=== PATIENT | male | born 1995 | race Caucasian/White ===

== ENCOUNTER 2017-05-03 14:08 | Emergency (ER) | payer OTHER ==
[~2017-05-03] VITALS: Ht 188 cm; Wt 114.4 kg
[2017-05-03 14:09] VITALS: BP 131/90
[2017-05-03] MEDS ORDERED: DIPH,PERTUSS(ACELL),TET VAC/PF NC IM-VACC ONE (14:30)
[2017-05-03] MEDS ORDERED: OXYcodone/APAP 5/325MG TABLET PO ONE (14:30)
[2017-05-03] MEDS ORDERED: AMOXICILLIN/CLAV 875-125MG TABLET PO ONE (14:30)
[2017-05-03] MEDS ORDERED: LIDOCAINE 1%, 20ML INFIL ONE ×2 (14:30→15:30)
[2017-05-03] MEDS ORDERED: OXYcodone/APAP 5/325MG TABLET ONE (14:42)
[2017-05-03] MEDS ORDERED: LIDOCAINE 1%, 20ML ONE ×2 (14:42→15:36)
[2017-05-03] MEDS ORDERED: DIPH,PERTUSS(ACELL),TET VAC/PF 0.5 ML IM-VACC ONE (14:43)
[2017-05-03] MEDS ORDERED: BACITRACIN ZINC OINT 500U/GM, 0.9 GM ONE ×2 (15:58→16:03)
== END 2017-05-03 16:13 | disposition home or self-care (01) ==
LOC: ED 16:05
DX: S61.412A Laceration without foreign body of left hand, initial encounter (principal); W54.0XXA Bitten by dog, initial encounter; Y93.89 Activity, other specified; Y92.89 Other specified places as the place of occurrence of the external cause; Y99.8 Other external cause status
CPT/HCPCS: 12002; 90471; 90715